=== PATIENT | male | born 1985 | race Caucasian/White ===

== ENCOUNTER 2024-09-27 00:08 | Emergency (ER) | payer SELFPAY ==
[~2024-09-27] VITALS: Ht 180.3 cm; Wt 159.0 kg
[2024-09-27 00:36] VITALS: TEMP 36.7; O2SAT 98
[2024-09-27 01:19] VITALS: TEMP 98.1
[2024-09-27] MEDS: ACETAMINOPHEN 500MG TABLET PO ONE (01:19)
[2024-09-27] MEDS ORDERED: IBUP-2029 MT (02:34)
[2024-09-27 03:55] VITALS: BP 142/88; PULSE 68; RESP 16; O2SAT 99
== END 2024-09-27 03:57 | disposition home or self-care (01) ==
LOC: ER 00:32
DX: S30.0XXA Contusion of lower back and pelvis, initial encounter (principal); S09.90XA Unspecified injury of head, initial encounter; Z98.84 Bariatric surgery status; V49.9XXA Car occupant (driver) (passenger) injured in unspecified traffic accident, initial encounter; Y93.89 Activity, other specified; Y92.89 Other specified places as the place of occurrence of the external cause; Y99.8 Other external cause status
CPT/HCPCS: 70450; 99284; Z7610